=== PATIENT | female | born 1980 | race Caucasian/White ===

== ENCOUNTER 2016-05-30 16:31 | Inpatient (IN) ==
--- NOTE | 2016-05-30 17:00 | Emergency Department Note ---
Disposition Clinical Impression: Suicidal ideation Disposition: Admitted As Inpatient Referrals: NO,PCP [Primary Care Provider] - Psych HPI - General Stated Complaint: SI Time Seen by Provider: 05/30/16 16:59 Source: patient Mode of arrival: ambulatory Nursing Notes Reviewed: Yes Vital Signs Reviewed: Yes - History of Present Illness Pt complaint: suicidal ideation Onset (ago): week(s) (2) Duration: constant, getting worse History of similar episodes: Yes Improves with: none Worsens with: none Alleged intoxication: No Associated Psychiatric Symptoms: depression, suicidal ideation Associated symptoms: Reports: denies other symptoms Traumatic symptoms: denies traumatic injury Treatments prior to arrival: none Self harm or harm to others: admits thoughts of self harm - Related Data Home Medications Medication Instructions Recorded Confirmed Buspirone HCl [Buspar] 10 mg PO BID 08/03/15 08/03/15 ClonazePAM [Klonopin] 1 mg PO BID PRN 08/03/15 08/03/15 Duloxetine HCl [Cymbalta] 120 mg PO DAILY 08/03/15 08/03/15 Omeprazole [PriLOSEC] 40 mg PO DAILY 08/03/15 08/03/15 Previous Rx's Medication Instructions Recorded BuPROPion SR (12 HR) [Wellbutrin 150 mg PO QAM 30 Days 08/07/15 SR] Quetiapine Fumarate [Seroquel] 100 mg PO HS #75 tablet 08/07/15 Allergies Allergy/AdvReac Type Severity Reaction Status Date / Time aripiprazole [From Abilify] Allergy Unresponsiv Verified 08/03/15 12:01 e Iloperidone [From Fanapt] Allergy Rash Verified 08/03/15 11:30 lamotrigine [From Lamictal] Allergy Rash Verified 08/03/15 11:30 All systems ED: reviewed and negative except as stated. Constitutional: Denies: fever, chills Cardiovascular: Denies: chest pain Gastrointestinal: Denies: abdominal pain Past Medical History - Past Medical History Source: patient, old records reviewed, nursing notes reviewed Medical history: Reports: no medical history Surgical history: Reports: other Psychiatric history: Reports: anxiety, depression, PTSD, prior suicide attempt, previous psychiatric hospitalization [employer] history: Reports: polycystic ovary syndrome - Social History Smoking Status: Current every day smoker Smokeless Tobacco Status: No Alcohol use: Reports: occasionally Drug use: Reports: none Physical Exam - General Limitations: no limitations General appearance: alert, in no apparent distress - Head Head exam: atraumatic, normocephalic, normal inspection - Eye Eye exam: Present: normal appearance, PERRL, EOMI - Expanded Eye Exam Pupils: Left: reactive - ENT ENT exam: normal exam, normal oropharynx, mucous membranes moist - Expanded ENT Exam External ear exam: Present: normal external inspection Mouth exam: Present: normal external inspection Teeth exam: Present: normal inspection Throat exam: Present: normal inspection - Neck Neck exam: Present: normal inspection, full ROM, trachea midline - Chest Chest inspection: Present: normal inspection, symmetric chest wall rise - Respiratory Respiratory exam: Present: normal lung sounds bilaterally - Cardiovascular Cardiovascular exam: Present: regular rate, normal rhythm, normal heart sounds - Abdominal Exam Abdominal exam: Present: soft, Non-Tender. Absent: tenderness, distention, guarding, rebound, rigidity - Extremities Exam Extremities exam: Present: normal inspection, full ROM. Absent: tenderness, pedal edema - Expanded Upper Extremity Exam Shoulder exam: Present: normal inspection, full ROM Arm exam: Present: normal inspection, full ROM Elbow exam: Present: normal inspection, full ROM Forearm/Wrist exam: Present: normal inspection, full ROM Hand exam: Present: normal inspection, full ROM Vascular exam: Normal: capillary refill, radial pulse - Expanded Lower Extremity Exam Hip/Pelvis exam: Present: normal inspection, full ROM Upper leg exam: Present: normal inspection, full ROM Knee exam: Present: normal inspection, full ROM Lower leg exam: Present: normal inspection, full ROM Ankle exam: Present: normal inspection, full ROM Foot/toe exam: Present: normal inspection, full ROM Neurovascular/Tendon exam: Absent: motor deficit, sensory deficit, tendon deficit - Back Exam Back exam: Present: normal inspection, full ROM. Absent: tenderness - Neurological Exam Neurological exam: Present: alert, oriented X3 - Expanded Neurological Exam Patient oriented to: Present: person, place, time Coma Scale Eye Opening: Spontaneous Coma Scale Motor Response: Obeys Commands Coma Scale Verbal Response: Oriented Coma Scale Total: 15 - Psychiatric Psychiatric exam: Present: normal affect, normal mood - Skin Skin exam: Present: warm, dry, intact, normal color Course Vital Signs Temperature 97.9 F 05/30/16 17:27 Pulse Rate 79 05/30/16 17:27 Respiratory Rate 16 05/30/16 17:27 Blood Pressure 116/75 05/30/16 17:27 O2 Sat by Pulse Oximetry 97 05/30/16 17:27 Temperature 97.9 F 05/30/16 17:27 Pulse Rate 79 05/30/16 17:27 Respiratory Rate 16 05/30/16 17:27 Blood Pressure 116/75 05/30/16 17:27 O2 Sat by Pulse Oximetry 97 05/30/16 17:27 Oxygen Delivery Oxygen Delivery Room Air Psych - Lab Data Result diagrams: 05/30/16 17:18 05/30/16 17:18 Lab Results 05/30/16 05/30/16 05/30/16 Range/Units 17:00 17:00 17:18 WBC 9.2 (4.3-11.1) K/mcL RBC 4.13 (3.82-4.97) M/mcL Hgb 11.7 (11.5-15.4) g/dL Hct 35.7 (35.3-44.9) % MCV 86.4 (83.0-100.0) fL MCH 28.3 (28.0-33.3) pg MCHC 32.8 (31.6-35.5) g/dL RDW 13.1 (11.5-14.5) % Plt Count 365 (140-400) K/mcL MPV 8.3 L (9.4-12.4) fL Immature Gran % 0.5 (0-4) % Seg Neutrophils % 61.0 % Lymphocytes % 28.4 % Monocytes % 8.5 % Eosinophils % 1.2 % Basophils % 0.4 % Neutrophils # 5.6 (1.6-8.9) K/mcL Lymphocytes # 2.6 (0.6-4.6) K/mcL Monocytes # 0.8 (0.0-1.3) K/mcL Eosinophils # 0.1 (0.0-0.6) K/mcL Basophils # 0.0 (0.0-0.2) K/mcL Immature Plt Fraction 1.3 (1.1-6.1) % Sodium (136-145) mEq/L Potassium (3.5-4.5) mEq/L Chloride (98-109) mEq/L Carbon Dioxide (19-29) mEq/L BUN (7-20) mg/dL Creatinine (0.57-1.11) mg/dL Est GFR ( Amer) (> 60) Est GFR (Non-Af Amer) (> 60) BUN/Creatinine Ratio (6-26) Glucose (70-99) mg/dL Calculated Osmolality (280-300) Calcium (8.6-10.8) mg/dL Urine Color Yellow (Yellow) Urine Clarity Cloudy A (Clear) Urine pH 6.0 (5.0-8.0) pH Units Ur Specific [place] 1.022 (1.010-1.025) Urine Protein Negative (Neg-Trace) mg/dL Urine Glucose (UA) Normal (Normal) mg/dL Urine Ketones Negative (Negative) mg/dL Urine Blood Negative (Negative) Urine Nitrite Negative (Negative) Urine Bilirubin Negative (Negative) Urine Urobilinogen Normal (Normal) mg/dL Ur Leukocyte Esterase Moderate H (Negative) Urine Microscopic RBC 0-3 (0-3) per hpf Urine Microscopic WBC 3-5 H (0-3) per hpf Ur Squamous Epith Cells Many H (None-Few) per lpf Urine Bacteria Few (None-Few) per hpf Hyaline Casts None Seen (None-Few) per lpf Salicylates (15-30) mg/dL Urine Opiates Screen Negative (Ccdlvw=099) ng/mL Acetaminophen (10-30) mcg/mL Ur Barbiturates Screen Negative (Cgvdto=795) ng/mL Ur Phencyclidine Scrn Negative (Cutoff=25) ng/mL Ur Amphetamines Screen Negative (Scdrsa=4163) ng/mL U Benzodiazepines Scrn Negative (Wzafhc=073) ng/mL Urine Cocaine Screen Negative (Cutoff= 300) ng/mL U Marijuana (THC) Screen Negative (Cutoff = 50) ng/mL Ethyl Alcohol (0-10) mg/dL 05/30/16 Range/Units 17:18 WBC (4.3-11.1) K/mcL RBC (3.82-4.97) M/mcL Hgb (11.5-15.4) g/dL Hct (35.3-44.9) % MCV (83.0-100.0) fL MCH (28.0-33.3) pg MCHC (31.6-35.5) g/dL RDW (11.5-14.5) % Plt Count (140-400) K/mcL MPV (9.4-12.4) fL Immature Gran % (0-4) % Seg Neutrophils % % Lymphocytes % % Monocytes % % Eosinophils % % Basophils % % Neutrophils # (1.6-8.9) K/mcL Lymphocytes # (0.6-4.6) K/mcL Monocytes # (0.0-1.3) K/mcL Eosinophils # (0.0-0.6) K/mcL Basophils # (0.0-0.2) K/mcL Immature Plt Fraction (1.1-6.1) % Sodium 139 (136-145) mEq/L Potassium 4.2 (3.5-4.5) mEq/L Chloride 108 (98-109) mEq/L Carbon Dioxide 23 (19-29) mEq/L BUN 16 (7-20) mg/dL Creatinine 0.71 (0.57-1.11) mg/dL Est GFR ( Amer) > 60 (> 60) Est GFR (Non-Af Amer) > 60 (> 60) BUN/Creatinine Ratio 23 (6-26) Glucose 104 H (70-99) mg/dL Calculated Osmolality 289 (280-300) Calcium 9.4 (8.6-10.8) mg/dL Urine Color (Yellow) Urine Clarity (Clear) Urine pH (5.0-8.0) pH Units Ur Specific [place] (1.010-1.025) Urine Protein (Neg-Trace) mg/dL Urine Glucose (UA) (Normal) mg/dL Urine Ketones (Negative) mg/dL Urine Blood (Negative) Urine Nitrite (Negative) Urine Bilirubin (Negative) Urine Urobilinogen (Normal) mg/dL Ur Leukocyte Esterase (Negative) Urine Microscopic RBC (0-3) per hpf Urine Microscopic WBC (0-3) per hpf Ur Squamous Epith Cells (None-Few) per lpf Urine Bacteria (None-Few) per hpf Hyaline Casts (None-Few) per lpf Salicylates < 5.0 L (15-30) mg/dL Urine Opiates Screen (Kojker=633) ng/mL Acetaminophen < 1.0 L (10-30) mcg/mL Ur Barbiturates Screen (Szrrgw=358) ng/mL Ur Phencyclidine Scrn (Cutoff=25) ng/mL Ur Amphetamines Screen (Cdoizt=3934) ng/mL U Benzodiazepines Scrn (Jemcsp=451) ng/mL Urine Cocaine Screen (Cutoff= 300) ng/mL U Marijuana (THC) Screen (Cutoff = 50) ng/mL Ethyl Alcohol < 10 (0-10) mg/dL Psychiatric Medical Clearance - Medical Clearance Checklist Medical History: No Social History Section defined Current Vitals: Last Vital Signs Temp 97.9 F 05/30/16 17:27 Pulse 79 05/30/16 17:27 Resp 16 05/30/16 17:27 BP 116/75 05/30/16 17:27 Pulse Ox 97 05/30/16 17:27 Psychiatric Lab Panel: Drug Levels and Toxicity 05/30/16 05/30/16 17:00 17:18 Urine Opiates Screen Negative Acetaminophen < 1.0 L Ur Barbiturates Screen Negative Ur Phencyclidine Scrn Negative Ur Amphetamines Screen Negative U Benzodiazepines Scrn Negative Urine Cocaine Screen Negative U Marijuana (THC) Screen Negative Ethyl Alcohol < 10 Abnormal Labs: Abnormal lab results MPV 8.3 fL (9.4-12.4) L 05/30/16 17:18 Glucose 104 mg/dL (70-99) H 05/30/16 17:18 Urine Clarity Cloudy (Clear) A 05/30/16 17:00 Ur Leukocyte Esterase Moderate (Negative) H 05/30/16 17:00 Urine Microscopic WBC 3-5 per hpf (0-3) H 05/30/16 17:00 Ur Squamous Epith Cells Many per lpf (None-Few) H 05/30/16 17:00 Salicylates < 5.0 mg/dL (15-30) L 05/30/16 17:18 Acetaminophen < 1.0 mcg/mL (10-30) L 05/30/16 17:18 Statement of Medical Clearance: I have evaluated the patient, reviewed diagnostic information, and certify that the patient's medical condition is sufficiently stable that transfer to the psychiatric unit does not pose a significant risk of deterioration.
[2016-05-30 17:06] LABS: Bilirubin,Urine Negative (Negative); Blood,Urine Negative (Negative); Clarity,Urine Cloudy (Clear); Color,Urine Yellow (Yellow); Glucose,Urine (UA) Normal (Normal); Ketones,Urine Negative (Negative); Leukocyte Esterase,Urine Moderate (Negative); Nitrite,Urine Negative (Negative); Protein,Urine Negative (Neg-Trace); Specific Gravity,Urine 1.022 (1.010-1.025); Urobilinogen,Urine Normal (Normal)
[2016-05-30 17:07] LABS: Bacteria,Urine Few per hpf (None-Few); Hyaline Casts,Urine None Seen per lpf (None-Few); Squamous Epithelial Cell,Urine Many per lpf (None-Few)
[2016-05-30 17:12] LABS: Amphetamine Screen,Urine Negative ng/mL (Cutoff=1000); Barbiturate Screen,Urine Negative ng/mL (Cutoff=200); Benzodiazepines Screen,Urine Negative ng/mL (Cutoff=200); Cannabinoid Screen,Urine Negative ng/mL (Cutoff = 50); Cocaine Screen,Urine Negative ng/mL (Cutoff= 300); Opiate Screen,Urine Negative ng/mL (Cutoff=300); Phencyclidine Screen,Urine Negative ng/mL (Cutoff=25)
[2016-05-30 17:21] LABS: RBC,Urine 0-3 per hpf (0-3)
[2016-05-30 17:27] LABS: Basophils % 0.4 %; Eosinophils # 0.1 K/mcL (0.0-0.6); Eosinophils % 1.2 %; Hematocrit 35.7 % (35.3-44.9); Hemoglobin 11.7 g/dL (11.5-15.4); Immature Granulocytes % 0.5 % (0-4); Immature Platelets 1.3 % (1.1-6.1); Lymphocytes # 2.6 K/mcL (0.6-4.6); Lymphocytes % 28.4 %; Mean Corpuscular HGB Conc 32.8 g/dL (31.6-35.5); Mean Corpuscular Hemoglobin 28.3 pg (28.0-33.3); Mean Corpuscular Volume 86.4 fL (83.0-100.0); Mean Platelet Volume 8.3 fL (9.4-12.4); Monocytes # 0.8 K/mcL (0.0-1.3); Monocytes % 8.5 %; Neutrophils # 5.6 K/mcL (1.6-8.9); Platelet Count 365 K/mcL (140-400); Red Blood Count 4.13 M/mcL (3.82-4.97); Red Cell Distribution Width 13.1 % (11.5-14.5)
[2016-05-30 17:41] LABS: BUN/Creatinine Ratio 23 (6-26); Blood Urea Nitrogen 16 mg/dL (7-20); Calcium 9.4 mg/dL (8.6-10.8); Carbon Dioxide 23 mEq/L (19-29); Chloride 108 mEq/L (98-109); Glucose 104 mg/dL (70-99); Osmolality,Calculated 289 (280-300); Potassium 4.2 mEq/L (3.5-4.5); Sodium 139 mEq/L (136-145); eGFR For African Americans > 60 (> 60); eGFR For Non-African Americans > 60 (> 60)
[2016-05-30 17:42] LABS: Acetaminophen < 1.0 mcg/mL (10-30); Ethanol < 10 mg/dL (0-10); Salicylate < 5.0 mg/dL (15-30)
[2016-05-30] MEDS ORDERED: *HR* LORazepam 1 MG TABLET PO PRN (20:35)
[2016-05-30] MEDS ORDERED: *HR* LORazepam 2 MG/ML VIAL IM PRN (20:35)
[2016-05-30] MEDS ORDERED: Haloperidol Lactate 5 MG/ML VIAL IM PRN (20:41)
[2016-05-30] MEDS ORDERED: MOM Conc 10 ML UD.LIQ PO PRN (20:41)
[2016-05-30] MEDS ORDERED: hydrOXYzine pamoate 25 MG CAPSULE PO PRN (20:41)
[2016-05-30] MEDS ORDERED: Mag Hydrox/Al Hydrox/Simeth 30 ML UDC PO PRN (20:41)
[2016-05-30] MEDS ORDERED: Ziprasidone 20 MG CAPSULE PO SCH (21:00)
[2016-05-30] MEDS: Ibuprofen 800 MG TABLET PO PRN (21:51)
[2016-05-30] MEDS: *HR* LORazepam 1 MG TABLET PO PRN (22:39)
[2016-05-31] MEDS: Ibuprofen 800 MG TABLET PO PRN ×3 (07:02→20:55)
[2016-05-31] MEDS: *HR* LORazepam 1 MG TABLET PO PRN (07:02)
[2016-05-31] MEDS: Potassium Citrate 10 MEQ TABLET.ER PO SCH ×3 (08:21→16:49)
[2016-05-31] MEDS: VIIBRYD 10 MG PO SCH (08:23)
--- NOTE | 2016-05-31 10:36 | Psychiatry History & Physical ---
Date of Encounter: 05/31/16 Time of Encounter: 09:30 History of Present Illness Patient Stated Chief Complaint: "I knew something was not right." Medicare Admission Attestation: For traditional Medicare patients the provided hospital inpatient services are reasonable and necessary and in the case of services not specified as inpatient -only under 42 CFR 419.22 (n), that they are appropriately provided as inpatient services in accordance 42 CFR 412.3. For Critical Access Hospital the patient may reasonably be expected to be discharged or transferred to a hospital within 96 hours after admission to the Critical Access Hospital. Admitted From: Emergency Dept Plans for Post Hospital Care: Home History of Present Illness: Ms. Horner is a 36 year old female white female with a history personality disorder, major depressive disorder, significant anxiety symptoms who presents to the hospital with increasing suicidal ideation, difficulty sleeping, and depressed mood. Patient reports that her recent medication changes caused her to destabilize. Outpatient records reviewed as she sees the psychiatrist outside of the hospital. Patient was feeling very stressed and had issues with meds at last appointment on 05/13/2016. Patient was supposed to be cross titrating her Seroquel and starting Geodon by she got confused about the dosage. She is currently taking glyburide 20 mg daily for depression but this medication is not available at the hospital. Patient states her fiance will bring this for her. She has been tapering off Wellbutrin and Cymbalta as well. Patient reports some difficulty sleeping since the taper of the Seroquel. She also reports a lot of negative thoughts and suicidal ideation. Patient felt that it was improvement that she chose to [facility] for writing a note or coming up with any plan other than her "normal plan" which is to overdose on her medications. Today the patient endorses continued suicidal ideation and depressed mood. She does report some mood swings and irritability. She admits to a lot of social stressors including financial problems because of her work injury that is not currently covered by worker's comp. Also her fiance recently had a heart catheterization and that has been stressful. Past Med Surg Social Fam HX - Past Medical History Medical history: non-contributory, other - Past Psychiatric History Psychiatric history: Reports: anxiety, depression, prior suicide attempt, previous psychiatric hospitalization Past psychiatric history details: Patient has multiple previous psychiatric admissions. She sees this psychiatrist as an outpatient. She does have a lot of long-standing history of difficulty coping and personality issues as well. Family psychiatric history: Yes Family Psychiatric History Details: Patient reports multiple family members with depression. Family History of Suicide: None - Past Surgical History Surgical History: non-contributory, , other - Social History Smoking Status: Current every day smoker Smokeless Tobacco Status: No Alcohol use: occasionally Drug use: none Occupational status: other (Patient is awaiting a Worker's Comp. claim) Current living situation: With Family Activity Level: Independent ambulation Recent Out of Country Travel Within the Last 8 Weeks: No Exposure or Possible Exposure to Illness During Travel: No Medications & Allergies Omeprazole [PriLOSEC] 40 mg PO DAILY 08/03/15 [History] Duloxetine HCl [Cymbalta] 60 mg PO DAILY 05/30/16 [History] Ibuprofen [Ibuprofen] 800 mg PO TID PRN 05/30/16 [History] LORazepam [Ativan] 1 mg PO TID PRN 05/30/16 [History] Potassium Citrate [Urocit-K] 10 meq PO TIDWM 05/30/16 [History] Quetiapine Fumarate [Seroquel] 200 mg PO HS 05/30/16 [History] Vilazodone HCl [Viibryd] 20 mg PO DAILY 05/30/16 [History] Ziprasidone HCl [Geodon] 40 mg PO HS 05/30/16 [History] Allergies aripiprazole [From Abilify] Allergy (Verified 08/03/15 12:01) Unresponsive Iloperidone [From Fanapt] Allergy (Verified 08/03/15 11:30) Rash lamotrigine [From Lamictal] Allergy (Verified 08/03/15 11:30) Rash Review of Systems Constitutional: Denies: fever, chills, weakness, weight change Eyes: Denies: eye pain, vision change Ears, Nose, Throat: Denies: ear pain, throat pain, dental pain, hearing loss, congestion Cardiovascular: Denies: chest pain, palpitations, dyspnea on exertion Respiratory: Denies: cough, dyspnea, wheezes Gastrointestinal: Denies: abdominal pain, nausea, vomiting, diarrhea, constipation Genitourinary male: Denies: urgency, dysuria, frequency, genital lesions Genitourinary female: Denies: urgency, dysuria, frequency, abnormal menses, dyspareunia Musculoskeletal: Reports: joint pain, myalgia Integumentary: Denies: rash, lesions, pruritus Neurological: Denies: headache, weakness, numbness, memory loss Psychiatric: Reports: depression, anxiety, abnormal sleep pattern, suicidal ideation, difficulty concentrating, hopelessness, irritability, mood swings Endocrine: Denies: fatigue, heat or cold intolerance Hematologic/Lymphatic: Denies: easy bruising, lymphadenopathy Allergic/Immunologic: Denies: urticaria, itchy eyes Mental Status Exam Patient orientation: Yes Person, Yes Time, Yes Place Level of alertness: Alert Patient appearance: Appropriate, Obese Behavior: cooperative Psychomotor activity: Normal Eye contact: Maintains Eye Contact Mood description: Depressed, Anxious Affect description: congruent with mood Speech pattern: Normal rate, Normal rhythm, Normal tone Speech volume: Normal Thought process: Intact Thought content: Yes Suicidal ideation Perceptual disturbances: No Auditory hallucinations, No Visual hallucinations Attention span: Capable of Focused Attention Memory description: Grossly Intact Patient reliability: Reliable Historian Intelligence estimate: Average Judgment: Fair Insight: Partial (This) Results - Vital Signs Vital signs: Temp Pulse Resp BP Pulse Ox 97.6 F 84 18 119/73 97 05/31/16 09:00 05/31/16 09:00 05/31/16 09:00 05/31/16 09:00 05/30/16 17:27 - Labs Labs: Laboratory Last Values WBC 9.2 K/mcL (4.3-11.1) 05/30/16 17:18 RBC 4.13 M/mcL (3.82-4.97) 05/30/16 17:18 Hgb 11.7 g/dL (11.5-15.4) 05/30/16 17:18 Hct 35.7 % (35.3-44.9) 05/30/16 17:18 MCV 86.4 fL (83.0-100.0) 05/30/16 17:18 MCH 28.3 pg (28.0-33.3) 05/30/16 17:18 MCHC 32.8 g/dL (31.6-35.5) 05/30/16 17:18 RDW 13.1 % (11.5-14.5) 05/30/16 17:18 Plt Count 365 K/mcL (140-400) 05/30/16 17:18 MPV 8.3 fL (9.4-12.4) L 05/30/16 17:18 Immature Gran % 0.5 % (0-4) 05/30/16 17:18 Seg Neutrophils % 61.0 % 05/30/16 17:18 Lymphocytes % 28.4 % 05/30/16 17:18 Monocytes % 8.5 % 05/30/16 17:18 Eosinophils % 1.2 % 05/30/16 17:18 Basophils % 0.4 % 05/30/16 17:18 Neutrophils # 5.6 K/mcL (1.6-8.9) 05/30/16 17:18 Lymphocytes # 2.6 K/mcL (0.6-4.6) 05/30/16 17:18 Monocytes # 0.8 K/mcL (0.0-1.3) 05/30/16 17:18 Eosinophils # 0.1 K/mcL (0.0-0.6) 05/30/16 17:18 Basophils # 0.0 K/mcL (0.0-0.2) 05/30/16 17:18 Immature Plt Fraction 1.3 % (1.1-6.1) 05/30/16 17:18 Sodium 139 mEq/L (136-145) 05/30/16 17:18 Potassium 4.2 mEq/L (3.5-4.5) 05/30/16 17:18 Chloride 108 mEq/L (98-109) 05/30/16 17:18 Carbon Dioxide 23 mEq/L (19-29) 05/30/16 17:18 BUN 16 mg/dL (7-20) 05/30/16 17:18 Creatinine 0.71 mg/dL (0.57-1.11) 05/30/16 17:18 Est GFR ( Amer) > 60 (> 60) 05/30/16 17:18 Est GFR (Non-Af Amer) > 60 (> 60) 05/30/16 17:18 BUN/Creatinine Ratio 23 (6-26) 05/30/16 17:18 Glucose 104 mg/dL (70-99) H 05/30/16 17:18 Calculated Osmolality 289 (280-300) 05/30/16 17:18 Calcium 9.4 mg/dL (8.6-10.8) 05/30/16 17:18 Urine Color Yellow (Yellow) 05/30/16 17:00 Urine Clarity Cloudy (Clear) A 05/30/16 17:00 Urine pH 6.0 pH Units (5.0-8.0) 05/30/16 17:00 Ur Specific [place] 1.022 (1.010-1.025) 05/30/16 17:00 Urine Protein Negative mg/dL (Neg-Trace) 05/30/16 17:00 Urine Glucose (UA) Normal mg/dL (Normal) 05/30/16 17:00 Urine Ketones Negative mg/dL (Negative) 05/30/16 17:00 Urine Blood Negative (Negative) 05/30/16 17:00 Urine Nitrite Negative (Negative) 05/30/16 17:00 Urine Bilirubin Negative (Negative) 05/30/16 17:00 Urine Urobilinogen Normal mg/dL (Normal) 05/30/16 17:00 Ur Leukocyte Esterase Moderate (Negative) H 05/30/16 17:00 Urine Microscopic RBC 0-3 per hpf (0-3) 05/30/16 17:00 Urine Microscopic WBC 3-5 per hpf (0-3) H 05/30/16 17:00 Ur Squamous Epith Cells Many per lpf (None-Few) H 05/30/16 17:00 Urine Bacteria Few per hpf (None-Few) 05/30/16 17:00 Hyaline Casts None Seen per lpf (None-Few) 05/30/16 17:00 Salicylates < 5.0 mg/dL (15-30) L 05/30/16 17:18 Urine Opiates Screen Negative ng/mL (Kvlmoa=373) 05/30/16 17:00 Acetaminophen < 1.0 mcg/mL (10-30) L 05/30/16 17:18 Ur Barbiturates Screen Negative ng/mL (Qcfyih=631) 05/30/16 17:00 Ur Phencyclidine Scrn Negative ng/mL (Cutoff=25) 05/30/16 17:00 Ur Amphetamines Screen Negative ng/mL (Tveslf=9645) 05/30/16 17:00 U Benzodiazepines Scrn Negative ng/mL (Ifjbke=045) 05/30/16 17:00 Urine Cocaine Screen Negative ng/mL (Cutoff= 300) 05/30/16 17:00 U Marijuana (THC) Screen Negative ng/mL (Cutoff = 50) 05/30/16 17:00 Ethyl Alcohol < 10 mg/dL (0-10) 05/30/16 17:18 Assessment and Plan (1) Depression, major, recurrent, moderate Current visit: No Status: Acute Plan: Admit inpatient for safety and stabilization, Close observation, Suicide Precautions per unit protocol, Encourage participation in unit milieu, Group Therapy, Monitor sleep, Monitor appetite Additional Plan: We will admit to wanting for psychiatric stabilization. We will decrease Seroquel and increase Geodon. Patient's family will bring Viibryd from home. Continue to encourage positive coping strategies and group attendance. Monitor sleep. Risks, benefits, side effects, alternatives discussed w/pt: Yes Patient agreeable to treatment: Yes Plans for Post Hospital Care: Home Estimated Length of Stay (Days): 3 (2) Anxiety Current visit: Yes Status: Acute Plan: Admit inpatient for safety and stabilization, Close observation, Suicide Precautions per unit protocol, Encourage participation in unit milieu, Group Therapy, Monitor sleep, Monitor appetite Additional Plan: Continue Ativan as needed. Risks, benefits, side effects, alternatives discussed w/pt: Yes Patient agreeable to treatment: Yes (3) Personality disorder Current visit: No Status: Acute Plan: Admit inpatient for safety and stabilization, Close observation, Suicide Precautions per unit protocol, Encourage participation in unit milieu, Group Therapy, Monitor sleep, Monitor appetite Additional Plan: Encourage group attendance and positive coping strategies.
[2016-05-31] MEDS ORDERED: Ziprasidone 80 MG CAPSULE PO SCH (21:00)
[2016-05-31] MEDS ORDERED: Ziprasidone 20 MG CAPSULE PO ONE (22:00)
[2016-06-01] MEDS: Potassium Citrate 10 MEQ TABLET.ER PO SCH ×3 (08:01→16:49)
[2016-06-01] MEDS: Ibuprofen 800 MG TABLET PO PRN ×3 (08:09→20:56)
[2016-06-01] MEDS: *HR* LORazepam 1 MG TABLET PO PRN ×3 (08:09→20:56)
[2016-06-01] MEDS: VIIBRYD 10 MG PO SCH (08:14)
--- NOTE | 2016-06-01 11:57 | Psychiatry Progress Note ---
Date of Encounter: 06/01/16 Time of Encounter: 11:45 Subjective Interval history: Patient is seen today for follow-up and further medication titration. She reports that she did not sleep that well initially with the 80 mg of Geodon and was given an extra 20 and finally did go to sleep. Mood is starting to improve slowly. Per staff notes last night she is still having intermittent suicidal ideation without plan at this time. She reports to this provider that even though she has no thoughts of wanting to hurt herself at the time of the interview that her plan for suicide is always the same and just overdosed on medicine. She has no plan to overdose here in the hospital as she has no means to do so. She is more future oriented and looking forward to seeing her kids today. Jimbo will bring her antidepressant which is not formulary here so that she can take her medicine. Anxiety is under good control currently. Review of Systems Musculoskeletal: Reports: back pain Psychiatric: Reports: depression, abnormal sleep pattern, suicidal ideation, difficulty concentrating, irritability Objective: Exam Patient orientation: Yes Person, Yes Time, Yes Place Level of alertness: Alert Patient appearance: Appropriate, Obese Behavior: cooperative Psychomotor activity: Normal Eye contact: Maintains Eye Contact Mood description: Depressed Affect description: congruent with mood Speech pattern: Normal rate, Normal rhythm, Normal tone Speech volume: Normal Thought process: Intact Thought content: Yes Suicidal ideation (Intermittent) Perceptual disturbances: No Auditory hallucinations, No Visual hallucinations Judgment: Fair Insight: Partial Results - Vital Signs Vital Signs: Temp Pulse Resp BP Pulse Ox 97.8 F 80 16 118/79 97 06/01/16 09:00 06/01/16 09:00 06/01/16 09:00 06/01/16 09:00 05/30/16 17:27 Assessment and Plan (1) Depression, major, recurrent, moderate Current visit: No Status: Acute Plan: Continue hospitalization, Close observation, Suicide Precautions per unit protocol, Encourage participation in unit milieu, Group Therapy, Monitor sleep, Monitor appetite Additional Plan: Viibryd will be brought by family today. We will increase Geodon to 120 mg daily at bedtime times taper the Seroquel altogether. Continue to monitor for side effects. Encourage positive coping strategies. Patient still having suicidal ideation intermittently. We will continue observation overnight and consider discharge if symptoms are not improving and if she responds well to these medication changes. Risks, benefits, side effects, alternatives discussed w/pt: Yes Patient agreeable to treatment: Yes (2) Anxiety Current visit: Yes Status: Acute Plan: Continue hospitalization, Close observation, Suicide Precautions per unit protocol, Encourage participation in unit milieu, Group Therapy, Monitor sleep, Monitor appetite Additional Plan: Continue Ativan as needed. Risks, benefits, side effects, alternatives discussed w/pt: Yes Patient agreeable to treatment: Yes (3) Personality disorder Current visit: No Status: Acute Plan: Continue hospitalization, Close observation, Suicide Precautions per unit protocol, Encourage participation in unit milieu, Group Therapy, Monitor sleep, Monitor appetite Additional Plan: Encourage group attendance. Risks, benefits, side effects, alternatives discussed w/pt: Yes Patient agreeable to treatment: Yes Consult Discharge Plan - Plan
[2016-06-01] MEDS: VILAZODONE 20 MG PO SCH (15:13)
[2016-06-01] MEDS: Ziprasidone 20 MG CAPSULE PO SCH (20:56)
[2016-06-01] MEDS ORDERED: Ziprasidone 80 MG CAPSULE PO SCH (21:00)
[2016-06-02] MEDS: Ibuprofen 800 MG TABLET PO PRN ×3 (06:47→20:56)
[2016-06-02] MEDS: Potassium Citrate 10 MEQ TABLET.ER PO SCH ×3 (08:16→16:48)
[2016-06-02] MEDS: VILAZODONE 20 MG PO SCH (08:16)
[2016-06-02] MEDS: *HR* LORazepam 1 MG TABLET PO PRN ×3 (08:41→20:56)
--- NOTE | 2016-06-02 11:52 | Psychiatry Progress Note ---
Date of Encounter: 06/02/16 Time of Encounter: 11:30 Subjective Interval history: Patient is seen for follow-up. I reviewed the notes and nursing notes indicate the patient is adjusting to medication changes. She reports improved sleep with increase in Geodon. She denies suicidal ideation. She is compliant with medication and participate in groups. Review of Systems Psychiatric: Reports: depression, abnormal sleep pattern, difficulty concentrating, irritability Objective: Exam Patient orientation: Yes Person, Yes Time, Yes Place Level of alertness: Alert Patient appearance: Appropriate, Obese Behavior: cooperative Psychomotor activity: Normal Eye contact: Maintains Eye Contact Mood description: Depressed, Anxious Affect description: congruent with mood Speech pattern: Normal rate, Normal rhythm, Normal tone Speech volume: Normal Thought process: Intact Thought content: Yes Suicidal ideation (Intermittent) Perceptual disturbances: No Auditory hallucinations, No Visual hallucinations Judgment: Fair Insight: Partial Results - Vital Signs Vital Signs: Temp Pulse Resp BP Pulse Ox 97.4 F L 73 12 137/79 97 06/02/16 08:54 06/02/16 08:54 06/02/16 08:54 06/02/16 08:54 05/30/16 17:27 Assessment and Plan (1) Depression, major, recurrent, moderate Current visit: No Status: Acute Plan: Continue hospitalization, Close observation, Suicide Precautions per unit protocol, Encourage participation in unit milieu, Group Therapy, Monitor sleep, Monitor appetite Risks, benefits, side effects, alternatives discussed w/pt: Yes Patient agreeable to treatment: Yes Consult Discharge Plan - Plan Referrals: NO,PCP [Primary Care Provider] -
[2016-06-02] MEDS: Ziprasidone 20 MG CAPSULE PO SCH (20:56)
[2016-06-03] MEDS: Ibuprofen 800 MG TABLET PO PRN (06:56)
[2016-06-03 08:17] VITALS: BP 125/85
[2016-06-03] MEDS: Potassium Citrate 10 MEQ TABLET.ER PO SCH ×2 (08:22→11:46)
[2016-06-03] MEDS: VILAZODONE 20 MG PO SCH (08:22)
[2016-06-03] MEDS: *HR* LORazepam 1 MG TABLET PO PRN ×2 (08:22→13:50)
--- NOTE | 2016-06-03 12:30 | Discharge Summary ---
Date of Encounter: 06/03/16 Time of Encounter: 12:21 Diagnosis - Discharge Diagnosis (1) Depression, major, recurrent, moderate Status: Acute (2) Anxiety Status: Acute (3) Personality disorder Status: Acute Medications - Discharge Medications Prescriptions: Ziprasidone [Geodon] 120 mg PO HS 30 Days Omeprazole [PriLOSEC] 40 mg PO DAILY 08/03/15 [History] Duloxetine HCl [Cymbalta] 60 mg PO DAILY 05/30/16 [History] Ibuprofen 800 mg PO TID PRN 05/30/16 [History] LORazepam [Ativan] 1 mg PO TID PRN 05/30/16 [History] Potassium Citrate [Urocit-K] 10 meq PO TIDWM 05/30/16 [History] Quetiapine Fumarate [Seroquel] 200 mg PO HS 05/30/16 [History] Vilazodone HCl [Viibryd] 20 mg PO DAILY 05/30/16 [History] Patient Taking Own Medication 0 each PO DAILY each 06/03/16 [Rx] Ziprasidone [Geodon] 120 mg PO HS 30 Days 06/03/16 [Rx] Allergies aripiprazole [From Abilify] Allergy (Verified 08/03/15 12:01) Unresponsive Iloperidone [From Fanapt] Allergy (Verified 08/03/15 11:30) Rash lamotrigine [From Lamictal] Allergy (Verified 08/03/15 11:30) Rash Provider Date of admission: 05/30/16 20:14 Primary care physician: PCP NO Discharging clinician: Darío Dacosta Assessment and Plan - Patient/Caregiver Discharge Instructions Activity: resume usual activities as tolerated Diet: regular diet - Follow up Plan Follow up with: [facility] [Outside] - 06/27/16 2:00 pm (The above appointment is with Dr. Kowalski.) [facility] [Outside] - 06/11/16 11:00 am (The above appointment is with Catrina Haley for counseling. Please arrive 15 minutes early to check-in.) Functional capacity at discharge: independent ambulation Overall status at discharge: Stable Disposition: Home, Self-Care Hospital Course Hospital course: Ms. Horner is a 36 year old female with history of depression and anxiety and personality disorder admitted suicidal ideation worsening depression and medication issues. For details of the admission please see H&P. Petar units patient medication were adjusted her sleep improved responded well medication changes mood has been more stable. She participated in activities and groups. Prior to discharge patient was medically stable and denies suicidal ideation and denied any side effects of the medication and reports follow-up as outpatient. - Time Spent with Patient Total time spent providing and/or coordinating discharge services: Greater than 30 minutes Quality - Multiple Antipsychotics Patient discharged on 2 or more antipsychotic medications: No Procedures - Procedures Procedures: Medication Management, Crisis Stabilization, Supportive Therapy, Group Therapy, Psychoeducational Therapy Mental Status Exam - Mental Status Exam Patient orientation: Yes Person, Yes Time, Yes Place Level of alertness: Alert Patient appearance: Appropriate, Obese Behavior: cooperative Psychomotor activity: Normal Eye contact: Maintains Eye Contact Mood description: Euthymic/stable, Anxious Affect description: congruent with mood Speech pattern: Normal rate, Normal rhythm, Normal tone Speech Volume: Normal Thought process: Intact Thought Content: Yes Intact Perceptual Disturbances: No Auditory hallucinations, No Visual hallucinations Judgment: Fair Insight: Partial
== END 2016-06-03 14:00 | disposition home or self-care (01) | DRG 751 ==
LOC: EMEROO 16:31 → 1ANU 19:18 → SUATTDRO 20:14
PROVIDERS: ADMIT Student in an Organized Health Care Education/Training Program; ATTEND Psychiatry & Neurology Psychiatry